=== PATIENT | male | born 1955 | race Caucasian/White ===

== ENCOUNTER → 2017-01-29 | Day surgery (SDC) | payer OTHER ==
[~2017-01-29] VITALS: Ht 170.2 cm; Wt 81.6 kg
[~2017-01-29] MED LIST: ASPIRIN EC81 M1 PO; ATORVASTATIN CA10 M1 PO; CITALOPRAM HBR20 MG PO; FOLIC ACID1 M1 PO; METOPROLOL TART25 M1 PO; OMEPRAZOLE20 M2 PO
--- NOTE | 2017-01-29 16:09 | Operative Report ---
Operative/Inv Procedure Report Surgery Date: 01/29/17 Name of Procedure: right epididymal cyst excision Pre-Operative Diagnosis: right epididiymal cyst Post-Operative Diagnosis: same Estimated Blood Loss: less than 50ml Surgeon/[employer]ach [employer] Tender: JUNI AUSTIN MD Anesthesia: local monitored anesthesi Specimens: epididymal cyst wall Complications: none Condition: stable Operative Indication: right testicular pain with epidiymal cyst Operative/Procedure Note Note: This an operative dictation on patient Nitish Domínguez. He was identified in the holding area and consented for right epididymal cyst excision. The risks benefits and alternatives of the surgery were given and all questions were answered. Patient was taken to the operating placed on the operating table in supine position. Timeout was performed. IV antibiotics were infused and IV sedation was given. Patient was prepped and draped in the standard sterile fashion in the patient in the supine position. He was shaved prior to doing so. Attention was turned to the right portion of the scrotum. A transverse and set incision was made over the cyst area. This taken down to the cyst itself. The testicle and the epididymis was delivered. The cyst wall was excised from the epididymis taking care not to injure the vas or the spermatic cord contents. The cyst was passed off and sent to pathology for evaluation. When coagulation was performed of any bleeding. The testicle was placed back into the scrotal sac and correct orientation. The dartos layer was closed with interrupted 3-0 Vicryl sutures. This was followed by 4-0 chromic interrupted sutures and the scrotal skin. The incision was covered with bacitracin ointment after the patient was cleaned of the Betadine solution. The sponge and needle count were correct at the end of the case. A scrotal support was then placed with fluff gauze. She tolerated the procedure well. Findings: right epidiymal cyst with clear fluid Discharge Disposition: Same Day Admissions
== END ==
LOC: STS 03:01
DX: N50.3 Cyst of epididymis (principal); N50.82 Scrotal pain; I25.10 Atherosclerotic heart disease of native coronary artery without angina pectoris; I10 Essential (primary) hypertension; K21.9 Gastro-esophageal reflux disease without esophagitis; Z85.07 Personal history of malignant neoplasm of pancreas; Z87.891 Personal history of nicotine dependence
CPT/HCPCS: 88304; J0690; J2250